=== PATIENT | female | born 1970 | race Caucasian/White ===

== ENCOUNTER 2016-09-30 02:40 | Emergency (ER) | payer BC ==
[~2016-09-30] VITALS: Ht 167.6 cm; Wt 73.5 kg
[~2016-09-30 02:40] MED LIST: CYAN10006 IM; FAMO-132 PO; RANI150T12 PO
[2016-09-30] MEDS ORDERED: ALBUTEROL SULFATE 2.5 MG/3 ML NEBU NEB ONE (03:00)
[2016-09-30] MEDS ORDERED: IPRATROPIUM BROMIDE 0.5 MG/2.5 ML NEBU NEB ONE (03:00)
[2016-09-30] MEDS ORDERED: AMOXICILLIN-CLAVUL 875-125MG TABLET PO ONE (03:00)
[2016-09-30] MEDS ORDERED: predniSONE 10 MG TABLET PO ONE (03:00)
[2016-09-30] MEDS ORDERED: predniSONE 10 MG TABLET ONE (03:07)
[2016-09-30] MEDS ORDERED: AMOXICILLIN-CLAVUL 875-125MG TABLET ONE (03:07)
[2016-09-30] MEDS ORDERED: predniSONE 50 MG TABLET ONE (03:07)
[2016-09-30] MEDS ORDERED: ALBUTEROL SULFATE 2.5 MG/3 ML NEBU ONE (03:13)
[2016-09-30] MEDS ORDERED: IPRATROPIUM BROMIDE 0.5 MG/2.5 ML NEBU ONE (03:13)
--- NOTE | 2016-09-30 03:30 | NUR ---
Patient discharged to home in stable conditon. Written and verbal after care instructions given. Patient verbalizes understanding of instructions.
== END 2016-09-30 03:31 | disposition home or self-care (01) ==
LOC: ER 02:43
DX: H92.03 Otalgia, bilateral (principal); R06.00 Dyspnea, unspecified; J45.901 Unspecified asthma with (acute) exacerbation; Z87.01 Personal history of pneumonia (recurrent); Z88.6 Allergy status to analgesic agent; Z88.1 Allergy status to other antibiotic agents; Z88.8 Allergy status to other drugs, medicaments and biological substances; Z90.49 Acquired absence of other specified parts of digestive tract
CPT/HCPCS: 71010; 94640; 99283; A4663; J3590; J7512

== ENCOUNTER 2017-01-31 15:31 | Emergency (ER) | payer BC ==
[~2017-01-31] VITALS: Ht 167.6 cm; Wt 81.6 kg
[2017-01-31] MEDS ORDERED: IV NORMAL SALINE 1000 ML BAG IV ONE (16:15)
[2017-01-31 16:42] LABS: BASOPHILS # (AUTO) 0.1 K/uL (0.0-8.0); BASOPHILS % (AUTO) 0.7 % (0.0-2.0); EOSINOPHILS # (AUTO) 0.4 K/uL (0.0-0.7); EOSINOPHILS % (AUTO) 3.5 % (0.0-7.0); HEMATOCRIT 39.6 % (37-47); HEMOGLOBIN 13.3 G/DL (12.0-16.0); LYMPHOCYTES # (AUTO) 1.7 K/UL (0.8-4.8); LYMPHOCYTES % (AUTO) 14.7 % (20.5-51.5); MEAN CORPUSCULAR HEMOGLOBIN 27.4 UUG (27.0-31.0); MEAN CORPUSCULAR HGB CONC 34 g/dL (32.0-37.0); MEAN CORPUSCULAR VOLUME 81.8 FL (81.0-99.0); MONOCYTES # (AUTO) 0.9 K/UL (0.1-1.30); MONOCYTES % (AUTO) 8.3 % (0.0-11.0); NEUTROPHILS # (AUTO) 8.2 K/UL (1.8-8.9); NEUTROPHILS % (AUTO) 72.8 % (38.5-71.5); PLATELET COUNT (AUTO) 470 K/UL (150-450); RED BLOOD CELL COUNT(AUTO) 4.84 MIL/UL (4.2-5.4); WHITE BLOOD COUNT (AUTO) 11.4 K/UL (4.0-11.2)
[2017-01-31 16:44] LABS: CREATININE 0.9 mg/dL (0.6-1.3); POTASSIUM 3.7 mmol/L (3.5-5.1)
[2017-01-31 16:48] LABS: *BILIRUBIN,URIN NEGATIVE (NEGATIVE); *BLOOD, URINE 2+ (NEGATIVE); *COLOR,URINE YELLOW (YELLOW); *KETONES,URINE NEGATIVE (NEGATIVE); *PROTEIN,URINE TRACE (NEGATIVE); *UROBILINOGEN,URINE 0.2 E.U./dl (NORMAL); LEUKOCYTE ESTERASE ,URINE NEGATIVE (NEGATIVE); NITRITE, URINE NEGATIVE (NEGATIVE); PH,URINE 5.5 (5.0-8.0); UGLUCOSE NEGATIVE (NEGATIVE)
[2017-01-31 16:49] LABS: *CLARITY,URINE SLIGHTLY HAZY (CLEAR)
[2017-01-31 16:50] LABS: BILIRUBIN,DIRECT 0.1 mg/dL (0.0-0.2); BILIRUBIN,TOTAL 0.6 mg/dL (0.2-1.0); TOTAL PROTEIN, SERUM 8.4 g/dL (6.4-8.2)
[2017-01-31 17:00] LABS: BACTERIA,URINE NONE SEEN /HPF (NONE SEEN); RBC,URINE 20-50 /HPF (0-3); SQUAMOUS EPITHELIAL CELL,UR FEW /HPF (NONE SEEN); WBC,URINE 0-3 /HPF (0-3)
[2017-01-31] MEDS ORDERED: IBUPROFEN 600 MG TABLET PO ONE (17:30)
[2017-01-31] MEDS ORDERED: IBUPROFEN 600 MG TABLET ONE (17:34)
--- NOTE | 2017-01-31 17:38 | NUR ---
PT SAYS FEELS BETTER, PT WALKS IN STEADY GAIT,Patient discharged to home in stable conditon. Written and verbal after care instructions given. Patient verbalizes understanding of instructions.
[2017-01-31 17:39] VITALS: BP 149/89
== END 2017-01-31 17:56 | disposition home or self-care (01) ==
LOC: ER 15:32
DX: J45.909 Unspecified asthma, uncomplicated (principal); H66.91 Otitis media, unspecified, right ear; R42 Dizziness and giddiness; Z90.49 Acquired absence of other specified parts of digestive tract; Z88.1 Allergy status to other antibiotic agents; Z88.6 Allergy status to analgesic agent
CPT/HCPCS: 36415; 70030-TC; 71010; 83605; 84443; 85025; 85730; 87040; 87086; 93005; A4663; J7030